=== PATIENT | male | born 1975 | race Caucasian/White ===

== ENCOUNTER 2018-05-19 07:50 | Outpatient (CLI) | payer BC ==
--- NOTE | 2018-05-19 09:41 | RAD ---
SI JOINTS: A total of 3 views. HISTORY: Sacroiliitis. FINDINGS: Both SI joints are normally maintained and are symmetric. Mild symmetric nonspecific sclerosis is se en along both sides of the SI joints. Bony pelvis unremarkable. IMPRESSION: Sacroiliac joints are symmetric. Mild nonspecific symmetric sclerosis seen bilaterally. POS: [facility]
== END 2018-05-19 07:51 | disposition home or self-care (01) ==
LOC: BICRAD 07:50
PROVIDERS: ATTEND Internal Medicine Rheumatology
DX: M46.1 Sacroiliitis, not elsewhere classified (principal); M53.3 Sacrococcygeal disorders, not elsewhere classified
CPT/HCPCS: 36415; 72202; 80053; 80061; 85025

== ENCOUNTER 2022-02-05 14:08 | Outpatient (CLI) | payer BC ==
[2022-02-05] MEDS ORDERED: Iopamidol 370 76% 100 ML VIAL ONE (14:50)
== END 2022-02-05 14:09 | disposition home or self-care (01) ==
LOC: BICCT 14:08
PROVIDERS: ATTEND Family Medicine
DX: R06.02 Shortness of breath (principal); R05.8 Other specified cough
CPT/HCPCS: 71260

== ENCOUNTER 2022-09-13 09:26 | Emergency (ER) | payer BC ==
[2022-09-13 11:04] LABS: SARS-CoV-2 NAA Rapid Test Not Detected (NotDetected)
[2022-09-13] MEDS ORDERED: Acetaminophen 500 MG TAB ONE (11:10)
[2022-09-13] MEDS ORDERED: Ketorolac Tromethamine 30 MG/ML VIAL ONE (12:27)
[2022-09-13 12:32] LABS: #Basophils 0.1 thou/uL (0.0-0.2); #Monocytes 1.3 thou/uL (0.11-0.59); #Neutrophils 7.9 thou/uL (1.40-6.50); %Basophils 0.7 % (0.0-1.0); %Eosinophils 0.2 % (0.0-10.0); %Lymphocytes 24.7 % (21.0-51.0); %Monocytes 10.5 % (0.0-10.0); Hemoglobin 14.9 g/dL (14.0-18.0); Mean Corpuscular HGB CONC 35.1 g/dL (32.0-36.0); Mean Corpuscular Volume 91.2 fl (78.0-98.0); Mean Platelet Volume 8.5 fL (7.4-10.4); Platelet Count 282 10x3/uL (130-400); RBC Distribution Width 12.3 % (11.5-14.5); Red Blood Cell (RBC) Count 4.64 mill/uL (4.70-6.10); White Blood Cell (WBC) Count 12.3 10x3/uL (4.8-10.8)
[2022-09-13 12:50] LABS: CRP (Inflammatory) 12.37 mg/dL (= or < 0.5)
[2022-09-13 12:52] LABS: ALT (SGPT) 98 U/L (8-55); AST (SGOT) 63 U/L (5-34); Alkaline Phosphatase 67 U/L (40-110); Anion Gap 15 mmol/L (10-20); BUN (Urea Nitrogen) 11 mg/dL (8.9-20.6); CK (CPK) 44 U/L (30-200); Calc. Creatinine Clearance 0 mL/min (70-130); Calcium 9.4 mg/dL (7.8-10.44); Carbon Dioxide 22 mmol/L (22-29); Chloride 100 mmol/L (98-107); Estimated GFR 90; Glucose 102 mg/dL (70-105); Potassium 3.6 mmol/L (3.5-5.1); Sodium 133 mmol/L (136-145)
[2022-09-13 14:32] LABS: HBSAg Index 0.21 S/CO (0-0.99); Hep B Surf Ag Non-Reactive S/CO (NonReactive); Hep C IgG Ab Non-Reactive (NonReactive); Hep C Index 0.17 S/CO (0-0.79)
[2022-09-13 14:33] LABS: Hep A IgM AB Non-Reactive (NonReactive); Hep A IgM S/CO 0.17 S/CO (0-0.79)
[2022-09-13 14:34] LABS: HBCM Index 0.09 S/CO (0-0.79); Hepatitis B Core IgM Abs Non-Reactive (NonReactive)
== END 2022-09-13 15:20 | disposition home or self-care (01) ==
LOC: ERS 09:26
DX: B34.9 Viral infection, unspecified (principal); R94.5 Abnormal results of liver function studies; D72.829 Elevated white blood cell count, unspecified; E78.5 Hyperlipidemia, unspecified; I10 Essential (primary) hypertension; Z79.899 Other long term (current) drug therapy
CPT/HCPCS: 36415; 71045; 80053; 80074; 82550; 83605; 83690; 85025; 85379; 86140; 87040; 93005; 96361; 96374; J1885